=== PATIENT | male | born 1960 | race Caucasian/White ===

== ENCOUNTER 2020-12-21 21:20 | Emergency (ER) | payer SELFPAY ==
[~2020-12-21] VITALS: Ht 165.1 cm; Wt 83.9 kg
[2020-12-21 21:40] VITALS: BP 174/98
--- NOTE | 2020-12-21 21:43 | NUR ---
TO LOBBY A/W BED AMBULATORY
--- NOTE | 2020-12-21 22:48 | NUR ---
PT AMUBULATED TO BED
--- NOTE | 2020-12-21 23:00 | NUR ---
60 Y/O MALE PATIENT PRESENTS TO ED WITH DAUGHTER C/O LEFT HAND PAIN . PT STATES "I HAVE PAIN WHEN I MOVE IT, AROUND 10/10" . DENIES N/V/D; SKIN IS PINK/WARM/DRY; AAOX4 WITH EVEN AND STEADY GAIT; LUNGS CLEAR BL; HR EVEN AND REGULAR; PT DENIES ANY FEVER, CP, SOB, OR COUGH AT THIS TIME; PATIENT STATES PAIN OF 10/10 AT THIS TIME; VSS; PATIENT POSITIONED FOR COMFORT; HOB ELEVATED; BEDRAILS UP X2; BED DOWN. ER MD MADE AWARE OF PT STATUS. NKA PMH: DENIES
[2020-12-21] MEDS ORDERED: NAPR-54 PO (23:35)
[2020-12-21 23:57] VITALS: BP 174/98
--- NOTE | 2020-12-21 23:58 | NUR ---
Patient discharged with v/s stable. Written and verbal after care instructions given and explained. Patient verbalized understanding. Ambulatory with steady gait. All questions addressed prior to discharge. Advised to follow up with PMD.
== END 2020-12-21 23:57 | disposition home or self-care (01) ==
LOC: MED 21:20
DX: M13.832 Other specified arthritis, left wrist (principal); I10 Essential (primary) hypertension; Z79.899 Other long term (current) drug therapy
CPT/HCPCS: 73130; 99283

== ENCOUNTER 2021-02-16 20:03 | Emergency (ER) | payer MEDICAID ==
[~2021-02-16] VITALS: Ht 165.1 cm; Wt 83.9 kg
[~2021-02-16 20:03] MED LIST: NAPR-54 PO
[2021-02-16 21:01] VITALS: BP 166/86
--- NOTE | 2021-02-16 21:39 | NUR ---
PT AMBULATED TO [facility]
[2021-02-16] MEDS ORDERED: KETOROLAC 60 MG/2 ML VIAL IM ONE (21:45)
[2021-02-16] MEDS ORDERED: cefTRIAXone 1,000 MG in LIDOCAINE MPF 1% 2.1 ML IM ONE (21:45)
[2021-02-16] MEDS ORDERED: LIDOCAINE MPF 1% 5 ML ONE (21:50)
[2021-02-16] MEDS ORDERED: cefTRIAXone 1,000 MG VIAL ONE (21:50)
--- NOTE | 2021-02-16 22:00 | NUR ---
PT RECIEVED MEDICATIONS ORDERED AND AMBULATED BACK TO LOBBY WITH DAUGHTER.
[2021-02-16] MEDS ORDERED: PENI500T20 PO (22:17)
[2021-02-16] MEDS ORDERED: NAPR-54 PO (22:17)
--- NOTE | 2021-02-16 22:20 | NUR ---
PT PROVIDED WITH DISCHARGE INSTRUCTIONS AND MEDICATION INFORMATION BY DR. SAMUEL. PT DISCHARGED AT THIS TIME.
== END 2021-02-16 22:20 | disposition home or self-care (01) ==
LOC: MED 20:03
DX: M27.3 Alveolitis of jaws (principal); L03.211 Cellulitis of face; I10 Essential (primary) hypertension; Z79.899 Other long term (current) drug therapy
CPT/HCPCS: 96372; 99284; J0696; J1885; J2001